=== PATIENT | male | born 1995 | race Two or more races ===

== ENCOUNTER 2016-12-14 15:00 | Emergency (ER) | payer MEDICAID ==
[~2016-12-14] VITALS: Ht 180.3 cm; Wt 77.1 kg
[2016-12-14 15:22] VITALS: BP 125/88
== END 2016-12-14 17:03 | disposition home or self-care (01) ==
LOC: ER 15:00
DX: S01.111D Laceration without foreign body of right eyelid and periocular area, subsequent encounter (principal); X58.XXXD Exposure to other specified factors, subsequent encounter; Y93.89 Activity, other specified; Y92.89 Other specified places as the place of occurrence of the external cause; Y99.8 Other external cause status

== ENCOUNTER 2017-12-16 14:44 | Emergency (ER) | payer MEDICAID ==
[~2017-12-16] VITALS: Ht 177.8 cm; Wt 83.9 kg
[2017-12-16 15:06] VITALS: BP 124/68
[2017-12-16 16:47] LABS: Alanine Aminotransferase 59 U/L (16-61); Albumin 5.3 g/dL (3.4-5.0); Alkaline Phosphatase 79 U/L (45-117); Anion Gap 10 (5-15); Aspartate Aminotransferase 30 U/L (15-37); BUN/Creatinine Ratio 11.6; Bilirubin, Total 0.8 mg/dL (0.2-1.0); Blood Urea Nitrogen 14 mg/dL (7-18); Calcium 9.3 mg/dL (8.5-10.1); Carbon Dioxide 25 mmol/L (21-32); Chloride 103 mmol/L (98-107); GFR African American 96 mL/min; GFR Non-African American 80 mL/min; Glucose 106 mg/dL (74-106); Potassium 3.1 mmol/L (3.5-5.1); Sodium 138 mmol/L (136-145); Total Protein 9.2 g/dL (6.4-8.2)
[2017-12-16 16:52] LABS: Alcohol, Urine < 3.0 mg/dL (0-5); Amphetamine Screen, Urine NEGATIVE (NEGATIVE); Barbiturate Scree,Urine NEGATIVE (NEGATIVE); Benzodiazephine Screen, Urine NEGATIVE (NEGATIVE); Cocaine Screen, Urine NEGATIVE (NEGATIVE); Opiate Scree,Urine NEGATIVE (NEGATIVE); Phencyclidine Screen, Urine NEGATIVE (NEGATIVE)
[2017-12-16 16:57] LABS: Cannabinoid Screen, Urine POSITIVE (NEGATIVE)
[2017-12-16] MEDS ORDERED: POTASSIUM EFFERVESENT TAB 25 MEQ PO ONE (17:00)
[2017-12-16 17:02] LABS: Basophils # (auto) 0 uL; Basophils % (auto) 0.4 % (0.0-2.0); Eosinophils # (auto) 0.1 uL; Hematocrit 44.7 % (41.0-53.0); Hemoglobin 16.1 g/dL (13.5-17.5); Lymphocytes # (auto) 2.1 uL; Lymphocytes % (auto) 23.2 % (10.0-50.0); Mean Corpuscular Hemoglobin 32.9 pg (28.0-32.0); Mean Corpuscular Volume 91.3 fL (80.0-100.0); Monocytes # (auto) 0.8 uL; Neutrophils % (auto) 66.4 % (37.0-80.0); Nucleated Red Blood Cells % 0.4 %; Platelet Count (auto) 293 10^3/uL (140-450); Red Cell Distribution Width 12.4 % (11.8-14.3); White Blood Cell 9.1 10^3/uL (4.4-10.8)
== END 2017-12-16 17:39 | disposition home or self-care (01) ==
LOC: ER 14:48
DX: F41.1 Generalized anxiety disorder (principal); E87.6 Hypokalemia; F14.10 Cocaine abuse, uncomplicated
CPT/HCPCS: 36415; 80053; 80307; 84484; 85025

== ENCOUNTER 2023-11-04 13:38 | Emergency (ER) | payer MEDICAID ==
[~2023-11-04] VITALS: Ht 177.8 cm; Wt 66.1 kg
[2023-11-04 14:18] VITALS: BP 160/76; RESP 16; TEMP 97.6; O2SAT 98
[2023-11-04 14:23] VITALS: PULSE 75
[2023-11-04] MEDS: cefTRIAXone SOD 1,000 MG VL IM ONE (14:32)
[2023-11-04] MEDS ORDERED: CLIN1CAP70 PO (15:06)
[2023-11-04] MEDS ORDERED: IBUP-1456 PO (15:06)
== END 2023-11-04 15:19 | disposition home or self-care (01) ==
LOC: ER 13:45
DX: S62.346A Nondisplaced fracture of base of fifth metacarpal bone, right hand, initial encounter for closed fracture (principal); K04.7 Periapical abscess without sinus; Z88.1 Allergy status to other antibiotic agents; W22.03XA Walked into furniture, initial encounter; Y93.89 Activity, other specified; Y92.89 Other specified places as the place of occurrence of the external cause; Y99.8 Other external cause status
CPT/HCPCS: 29125; 73130; 96372; 99283; J0696

== ENCOUNTER 2024-02-21 16:54 | Emergency (ER) | payer MEDICAID ==
[~2024-02-21] VITALS: Ht 180.3 cm; Wt 72.0 kg
[~2024-02-21 16:54] MED LIST: CLIN1CAP70 PO; IBUP-1456 PO
[2024-02-21 17:30] VITALS: BP 115/78; PULSE 132; RESP 18; O2SAT 97
[2024-02-21] MEDS ORDERED: THIAMINE 100mg/ml INJ (200mg/2ml VIAL) IV ONE (18:45)
[2024-02-21] MEDS ORDERED: SODIUM CHLORIDE 0.9% 1,000 ML IV ONE ×2 (18:45)
== END 2024-02-21 19:49 | disposition left against medical advice (07) ==
LOC: ER 16:54
DX: S01.81XA Laceration without foreign body of other part of head, initial encounter (principal); F10.10 Alcohol abuse, uncomplicated; Z79.899 Other long term (current) drug therapy; W01.0XXA Fall on same level from slipping, tripping and stumbling without subsequent striking against object, initial encounter; Y93.01 Activity, walking, marching and hiking; Y92.89 Other specified places as the place of occurrence of the external cause; Y99.8 Other external cause status

== ENCOUNTER 2024-06-20 15:55 | Emergency (ER) | payer MEDICAID ==
[~2024-06-20] VITALS: Ht 177.8 cm; Wt 66.9 kg
--- NOTE | 2024-06-20 17:17 | DVH ---
CLINICAL INDICATION: R/O FX CRUSHING INJURY TECHNIQUE: 4 radiographic views of the left hand were obtained. Comparison: XY R HAND 3 VIEW XRAY on DOS: 11/04/23 FINDINGS/IMPRESSION: There is no evidence of acute fracture or dislocation. Old healed fracture distal 4th and 5th metacarpal. The visualized joint space is well maintained. The alignment is anatomical. There is no radiopaque foreign body.
--- NOTE | 2024-06-20 17:29 | ED.PDOC ---
Musculoskeletal HPI Comments This patient is a 29-year-old male who arrives the ED today for evaluation of left hand concerns. Patient states that three days ago he had his left hand wedged against a wall due to a piece of wood landing on it. Patient states he had abrasions of the time that he has been cleaning. patient arrives with swelling to the dorsal aspect of the left hand. Patient denies any fever nausea or vomiting. Vital signs were stable on arrival. Chief Complaint: Upper Extremity Time Seen by MD: 17:20 Primary Care Provider: ? Reviewed Notes: Nurses Notes, Medications, Allergies Allergies: Coded Allergies: NO KNOWN ALLERGIES (Unverified , 12/16/17) Home Meds Active Scripts Clindamycin Hcl (Clindamycin Hcl) 300 Mg Cap, 1 CAP PO TID, #30 CAP Prov:FRANDY PRYOR 11/04/23 Ibuprofen (Ibuprofen) 800 Mg Tab, 1 TAB PO TID, #30 TAB Prov:FRANDY PRYOR 11/04/23 Information Source: Patient Mode of Arrival: Ambulatory Location: Left Extremity Location: Hand Timing: Days Prehospital treatment: Pain Meds Severity: Moderate Able to Move Extremity: Yes Bear Weight: Fully Pain: Moderate Hand Dominance: Right Mechanism: Crush Circumstances: Accident Onset of Symptoms: After Trauma Symptoms: Swelling, Pain, Erythema DVT Risk Factors: NONE Associated signs and symptoms: Abrasion, Swelling Past Medical History PAST MEDICAL HISTORY: Denies Surgical History: Denies all surgeries Family History Family History: Reviewed,noncontributory to illness Social History Smoker: Non-Smoker Alcohol: Heavy Drugs: Cocaine, Marijuana Lives In: Home Constitutional: denies: chills, diaphoresis, fatigue, fever, malaise, sweats, weakness, others EENTM: denies: blurred vision, double vision, ear bleeding, ear discharge, ear drainage, ear pain, ear ringing, eye pain, eye redness, hearing loss, mouth pain, mouth swelling, nasal discharge, nose bleeding, nose congestion, nose pain, photophobia, tearing, throat pain, throat swelling, voice changes, others Respiratory: denies: cough, hemoptysis, orthopnea, SOB at rest, shortness of breath, SOB with excertion, stridor, wheezing, others Cardiovascular: denies: chest pain, dizzy spells, diaphoresis, Dyspnea on exertion, edema, irregular heart beat, left arm pain, lightheadedness, palpitations, PND, syncope, others Gastrointestinal: denies: abdomen distended, abdominal pain, blood streaked bowels, constipated, diarrhea, dysphagia, difficulty swallowing, hematemesis, melena, nausea, poor appetite, poor fluid intake, rectal bleeding, rectal pain, vomiting, others Genitourinary: denies: burning, dysuria, flank pain, frequency, hematuria, incontinence, penile discharge, penile sore, pain, testicle pain, testicle swelling, urgency, others Neurological: denies: dizziness, fainting, headache, left sided numbness, left sided weakness, numbness, paresthesia, pre-existing deficit, right sided numbness, right sided weakness, seizure, speech problems, tingling, tremors, weakness, others Musculoskeletal: reports: others (left hand swelling with soft tissue wounds); denies: back pain, gout, joint pain, joint swelling, muscle pain, muscle stiffness, neck pain Integumetry: denies: bruises, change in color, change in hair/nails, dryness, laceration, lesions, lumps, rash, wounds, others Allergic/Immunocompromised: denies: Difficulty Healing, Frequent Infections, Hives, Itching, others Hematologic/Lymphatic: denies: anemia, blood clots, easy bleeding, easy bruising, swollen glands, others Endocrine: denies: excessive hunger, excessive sweating, excessive thirst, excessive urination, flushing, intolerance to cold, intolerance to heat, unexplained weight gain, unexplained weight loss, others Psychiatric: denies: anxiety, bipolar disorder, depression, hopeless, panic disorder, schizophrenia, sleepless, suicidal, others All Other Systems: Reviewed and Negative Physical Exam General Appearance: Mild Distress ([id number] distress due to left hand pain and swelling concerns.), Normal HEENT: Normal ENT Inspection, Pharynx Normal, TMs Normal Neck: Full Range of Motion, Non-Tender, Normal, Normal Inspection Respiratory: Chest Non-Tender, Lungs Clear, No Accessory Muscle Use, No Respiratory Distress, Normal Breath Sounds Cardiovascular: No Edema, No JVD, No Murmur, No Gallop, Normal Peripheral Pulses, Regular Rate/Rhythm Breast Exam: Deferred Gastrointestinal: No Organomegaly, Non Tender, No Pulsatile Mass, Normal Bowel Sounds, Soft Genitalia: Deferred Pelvic: Deferred Rectal: Deferred Extremities: No calf tenderness, Normal capillary refill, Non-tender, No pedal edema, Other (Dorsal aspect of the left hand reveals multiple soft tissue wounds with a edema over the 4th and 5th metacarpal. Mild erythema noted throughout. Moderate reduced range of motion in the 4th and 5th digit. 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 Was a procedure done?: No Differential Diagnosis EXT Differential Diagnosis: Fracture, Sprain, Laceration, Strain X-Ray, Labs, Meds, VS Vital Signs Date Time Temp Pulse Resp B/P (MAP) Pulse Ox O2 Delivery O2 Flow Rate FiO2 06/20/24 16:46 98.1 116 18 140/94 (109) 96 Lab Test 06/20/24 18:16 Range/Units White Blood Count 5.3 4.4-10.8 10^3/uL Red Blood Count 3.98 L 4.5-5.90 10^6/uL Hemoglobin 13.4 L 13.5-17.5 g/dL Hematocrit 38.1 L 41.0-53.0 % Mean Corpuscular Volume 95.6 80.0-100.0 fL Mean Corpuscular Hemoglobin 33.6 H 28.0-32.0 pg Mean Corpuscular Hemoglobin Concent 35.1 32.0-36.0 g/dL Red Cell Distribution Width 12.8 11.8-14.3 % Platelet Count 111 L 140-450 10^3/uL Mean Platelet Volume 8.0 6.9-10.8 fL Neutrophils (%) (Auto) 41.3 37.0-80.0 % Lymphocytes (%) (Auto) 45.2 10.0-50.0 % Monocytes (%) (Auto) 12.0 0.0-12.0 % Eosinophils (%) (Auto) 0.9 0.0-7.0 % Basophils (%) (Auto) 0.6 0.0-2.0 % Neutrophils # (Auto) 2.2 1.6-8.6 10 ^3/uL Lymphocytes # (Auto) 2.4 0.4-5.4 10 ^3/uL Monocytes # (Auto) 0.6 0-1.3 10 ^3/uL Eosinophils # (Auto) 0 0-0.8 10 ^3/uL Basophils # (Auto) 0 0-0.2 10 ^3/uL Nucleated Red Blood Cells 0.1 % Sodium Level 136 136-145 mmol/L Potassium Level 3.3 L 3.5-5.1 mmol/L Chloride Level 98 98-107 mmol/L Carbon Dioxide Level 25 20-31 mmol/L Anion Gap 13 5-15 Blood Urea Nitrogen < 5 L 9-23 mg/dL Creatinine 0.75 0.700-1.30 mg/dL Glomerular Filtration Rate Calc 125 >90 mL/min BUN/Creatinine Ratio 6.7 L 10.0-20.0 Serum Glucose 130 H 74-106 mg/dL Calcium Level 9.7 8.7-10.4 mg/dL [place] [id number] Ph: [phone] DIAGNOSTIC IMAGING Diagnostic Imaging Report : [id number] Signed PATIENT: JAIMEE KWON ACCT: [id number] UNIT: [id number] : 1995 LOC: ER ROOM / BED: / AGE / SEX: 29 / M ADM STATUS: REG ER SERVICE 54 ORDERING PHYSICIAN: ANA BOOKER MD PROCEDURE(s): LHAN - L HAND 3V XRAY REASON: R/O FX CRUSHING INJURY ORDER NUMBER(s): [id number], ACCESSION NUMBER(s): [id number] CLINICAL INDICATION: R/O FX CRUSHING INJURY TECHNIQUE: 4 radiographic views of the left hand were obtained. Comparison: XY R HAND 3 VIEW XRAY on DOS: 11/04/23 FINDINGS/IMPRESSION: There is no evidence of acute fracture or dislocation. Old healed fracture distal 4th and 5th metacarpal. The visualized joint space is well maintained. The alignment is anatomical. There is no radiopaque foreign body. ATED BY: BARB OBANDO Jr., DO DICTATED DATE/TIME: 06/20/24 0975 SIGNED BY: BARB OBANDO Jr., DO SIGNED DATE/TIME: 06/20/24 0925 CC: X-Ray, Labs, Meds, VS Comment All studies performed in the ED were evaluated by me personally. Patient has no acute fractures of the left hand. Patient sustained a crush injury with soft tissue wounds. Lateral concerns for some progressive skin infection. Patient will be sent home with the antibiotics and anti-inflammatory meds to be utilized as directed. Time of 1ST Reevaluation: 19:45 Reevaluation 1ST: Improved Consultation: PCP Patient Education/Counseling: Diagnosis, Treatment Family Education/Counseling: Diagnosis, Treatment, No Family Present Departure 1 Departure Time of Disposition: 19:45 Impression: Primary Impression: Hand contusion Additional Impression: Skin infection Disposition: HOME / SELF CARE / HOMELESS Condition: Stable Additional Instructions: Advised patient utilize antibiotics as directed as well as additional medication as needed. Patient can utilize ice therapy as well. e-Prescriptions Ibuprofen Micronized (Ibuprofen) 800 Mg Tab 800 MG PO Q8HP PRN, #20 TAB Prov: MARYAM DALEY PAC 06/20/24 Cephalexin (KEFLEX CAPSULE) 250 Mg Cp 1 CAP PO QID for 7 Days, #28 CAP Prov: MARYAM DALEY PAC 06/20/24 Critical Care Note Critical Care Time?: No Stability Stability form required: No Heart Score Heart Score: Heart Score Response (Comments) Value History N/A 0 EKG N/A 0 Age N/A 0 Risk Factors N/A 0 Troponin N/A 0 Total 0 I personally scribed for MARYAM DALEY PAC ([email or web address]) on 06/20/24 at 17:29. Electronically submitted by Laverne Saba ([email or web address]). I personally scribed for MARYAM DALEY PAC ([email or web address]) on 06/20/24 at 17:47. Electronically submitted by Laverne Saba ([email or web address]). MARYAM DALEY PAC Jun 20, 2024 17:29
[2024-06-20 18:47] LABS: Basophils # (auto) 0 10 ^3/uL (0-0.2); Basophils % (auto) 0.6 % (0.0-2.0); Eosinophils # (auto) 0 10 ^3/uL (0-0.8); Eosinophils % (auto) 0.9 % (0.0-7.0); Hematocrit 38.1 % (41.0-53.0); Hemoglobin 13.4 g/dL (13.5-17.5); Lymphocytes # (auto) 2.4 10 ^3/uL (0.4-5.4); Lymphocytes % (auto) 45.2 % (10.0-50.0); Mean Corpuscular Hemoglobin 33.6 pg (28.0-32.0); Mean Corpuscular Hgb Conc. 35.1 g/dL (32.0-36.0); Mean Corpuscular Volume 95.6 fL (80.0-100.0); Monocytes # (auto) 0.6 10 ^3/uL (0-1.3); Neutrophils # (auto) 2.2 10 ^3/uL (1.6-8.6); Neutrophils % (auto) 41.3 % (37.0-80.0); Nucleated Red Blood Cells % 0.1 %; Platelet Count (auto) 111 10^3/uL (140-450); Red Blood Cells 3.98 10^6/uL (4.5-5.90); Red Cell Distribution Width 12.8 % (11.8-14.3); White Blood Cell 5.3 10^3/uL (4.4-10.8)
[2024-06-20 18:57] LABS: Chloride 98 mmol/L (98-107); Sodium 136 mmol/L (136-145)
[2024-06-20 18:58] LABS: Anion Gap 13 (5-15); Calcium 9.7 mg/dL (8.7-10.4); Carbon Dioxide 25 mmol/L (20-31)
[2024-06-20 19:05] LABS: BUN/Creatinine Ratio 6.7 (10.0-20.0); Blood Urea Nitrogen < 5 mg/dL (9-23); Glucose 130 mg/dL (74-106); Potassium 3.3 mmol/L (3.5-5.1)
[2024-06-20] MEDS ORDERED: CEPH250C PO (19:46)
[2024-06-20] MEDS ORDERED: IBUP-1455 PO (19:46)
[2024-06-20 20:59] VITALS: BP 130/94; PULSE 98; RESP 18; TEMP 97.9; O2SAT 97
== END 2024-06-20 21:01 | disposition home or self-care (01) ==
LOC: ER 15:55
DX: S60.222A Contusion of left hand, initial encounter (principal); L08.9 Local infection of the skin and subcutaneous tissue, unspecified; W23.0XXA Caught, crushed, jammed, or pinched between moving objects, initial encounter; Y93.89 Activity, other specified; Y92.89 Other specified places as the place of occurrence of the external cause; Y99.8 Other external cause status
CPT/HCPCS: 36415; 73130; 80048; 85025

== ENCOUNTER 2024-07-15 12:48 | Inpatient (IN) | payer MEDICAID ==
[~2024-07-15] VITALS: Ht 152.4 cm; Wt 70.0 kg
[~2024-07-15 12:48] MED LIST changes: +CEPH250C PO; +IBUP-1455 PO
--- NOTE | 2024-07-15 13:08 | ED.PDOC ---
History of Present Illness HPI Comments 29M [place] from [facility] w/ a c/c of Sz. EMS report the pt having a 1 minute lasting SZ, twice, w/ a 1 minute interval in between. Pt states that he has had a Sz in the past 1 month ago, but did not ever go see a physician for it. Pt notes that he does not have any Sz medications. Social Hx of tobacco use, heavy alcohol use, and marijuana use. Denies chills, fever, N/V/D, SOB, CP or no other associated symptom's, modifiers, recent injuries or sick contacts at this time. Chief Complaint: Seizure Time Seen by MD: 12:55 Primary Care Provider: ? Reviewed Notes: Nurses Notes, Lead Nurse Notes, Medications, Allergies Allergies: Coded Allergies: NO KNOWN ALLERGIES (Unverified , 12/16/17) Home Meds Active Scripts Ibuprofen Micronized (Ibuprofen) 800 Mg Tab, 800 MG PO Q8HP PRN, #20 TAB Prov:MARYAM DALEY PAC 06/20/24 Cephalexin (KEFLEX CAPSULE) 250 Mg Cp, 1 CAP PO QID for 7 Days, #28 CAP Prov:MARYAM DALEY PAC 25 Clindamycin Hcl (Clindamycin Hcl) 300 Mg Cap, 1 CAP PO TID, #30 CAP Prov:FRANDY PRYOR 11/04/23 Ibuprofen (Ibuprofen) 800 Mg Tab, 1 TAB PO TID, #30 TAB Prov:FRANDY PRYOR 11/04/23 Information Source: Patient, Emergency Med Personnel Mode of Arrival: EMS Severity: Moderate Timing: Minutes Duration: Since onset, Minutes Prehospital treatment: None Past Medical History PAST MEDICAL HISTORY: Seizures Surgical History: Denies all surgeries Family History Family History: Reviewed,noncontributory to illness, Unknown Social History Smoker: Cigarettes Alcohol: Heavy Drugs: Cocaine (UNKNOWN), Marijuana Lives In: Home Constitutional: denies: chills, diaphoresis, fatigue, fever, malaise, sweats, weakness, others EENTM: denies: blurred vision, double vision, ear bleeding, ear discharge, ear drainage, ear pain, ear ringing, eye pain, eye redness, hearing loss, mouth pain, mouth swelling, nasal discharge, nose bleeding, nose congestion, nose pain, photophobia, tearing, throat pain, throat swelling, voice changes, others Respiratory: denies: cough, hemoptysis, orthopnea, SOB at rest, shortness of breath, SOB with excertion, stridor, wheezing, others Cardiovascular: denies: chest pain, dizzy spells, diaphoresis, Dyspnea on exertion, edema, irregular heart beat, left arm pain, lightheadedness, palpitations, PND, syncope, others Gastrointestinal: denies: abdomen distended, abdominal pain, blood streaked bowels, constipated, diarrhea, dysphagia, difficulty swallowing, hematemesis, melena, nausea, poor appetite, poor fluid intake, rectal bleeding, rectal pain, vomiting, others Genitourinary: denies: burning, dysuria, flank pain, frequency, hematuria, incontinence, penile discharge, penile sore, pain, testicle pain, testicle swelling, urgency, others Neurological: reports: seizure; denies: dizziness, fainting, headache, left sided numbness, left sided weakness, numbness, paresthesia, pre-existing deficit, right sided numbness, right sided weakness, speech problems, tingling, tremors, weakness, others Musculoskeletal: denies: back pain, gout, joint pain, joint swelling, muscle pain, muscle stiffness, neck pain, others Integumetry: denies: bruises, change in color, change in hair/nails, dryness, laceration, lesions, lumps, rash, wounds, others Allergic/Immunocompromised: denies: Difficulty Healing, Frequent Infections, Hives, Itching, others Hematologic/Lymphatic: denies: anemia, blood clots, easy bleeding, easy bruising, swollen glands, others Endocrine: denies: excessive hunger, excessive sweating, excessive thirst, excessive urination, flushing, intolerance to cold, intolerance to heat, unexplained weight gain, unexplained weight loss, others Psychiatric: denies: anxiety, bipolar disorder, depression, hopeless, panic disorder, schizophrenia, sleepless, suicidal, others All Other Systems: Reviewed and Negative Physical Exam General Appearance: Moderate Distress, Normal HEENT: Normal ENT Inspection, Pharynx Normal, TMs Normal Neck: Full Range of Motion, Non-Tender, Normal, Normal Inspection Respiratory: Chest Non-Tender, Lungs Clear, No Accessory Muscle Use, No Respiratory Distress, Normal Breath Sounds Cardiovascular: No Edema, No JVD, No Murmur, No Gallop, Normal Peripheral Pulses, Regular Rate/Rhythm Breast Exam: Deferred Gastrointestinal: No Organomegaly, Non Tender, No Pulsatile Mass, Normal Bowel Sounds, Soft Genitalia: Deferred Pelvic: Deferred Rectal: Deferred Extremities: No calf tenderness, Normal capillary refill, Normal inspection, Normal range of motion, Non-tender, No pedal edema Musculoskeletal : Apperance: Normal Neurologic: Disoriented, No Motor Deficits, Normal Mood, No Sensory Deficits Cerebellar Function: NOT DONE Reflexes: NOT DONE Skin: Dry, Normal Color, Warm Peripheral Pulses: 3+ Radial (R), 3+ Radial (L) Lymphatic: No Adenopathy Was a procedure done? Was a procedure done?: No Differential Dx Considerations may include: Seizure Electrolyte imbalance X-Ray, Labs, Meds, VS Vital Signs Date Time Temp Pulse Resp B/P (MAP) Pulse Ox O2 Delivery O2 Flow Rate FiO2 07/15/24 13:00 98.0 116 16 147/89 (108) 96 98.0 Lab Test 07/15/24 13:07 Range/Units White Blood Count Pending Red Blood Count Pending Hemoglobin Pending Hematocrit Pending Mean Corpuscular Volume Pending Mean Corpuscular Hemoglobin Pending Mean Corpuscular Hemoglobin Concent Pending Red Cell Distribution Width Pending Platelet Count Pending Mean Platelet Volume Pending Neutrophils (%) (Auto) Pending Lymphocytes (%) (Auto) Pending Monocytes (%) (Auto) Pending Basophils (%) (Auto) Pending Neutrophils # (Auto) Pending Lymphocytes # (Auto) Pending Monocytes # (Auto) Pending Sodium Level Pending Potassium Level Pending Chloride Level Pending Carbon Dioxide Level Pending Anion Gap Pending Blood Urea Nitrogen Pending Creatinine Pending Glomerular Filtration Rate Calc Pending BUN/Creatinine Ratio Pending Serum Glucose Pending Calcium Level Pending Plasma/Serum Blood Alcohol Pending Patient is slightly disoriented. Postictal. History of alcohol abuse. Has not been taking his medication. Possible alcohol withdrawal. Blood pressure slightly elevated. Patient denies use of any medication. Establish intravenous access. Was given fluids. Was given thiamine. Was given Ativan. Waiting for family. Continue cardiac monitoring. Time of 1ST Reevaluation: 13:25 Reevaluation 1ST: Unchanged Patient Education/Counseling: Diagnosis, Treatment, Prognosis Family Education/Counseling: No Family Present Departure 1 Departure Time of Disposition: 13:28 Impression: Primary Impression: Metabolic encephalopathy Additional Impressions: Seizure Alcohol withdrawal Qualified Codes: F10.939 - Alcohol use, unspecified with withdrawal, unspecified Disposition: ADMITTED INPATIENT Admit to: Med Surg Condition: Guarded Critical Care Note Critical Care Time?: Yes (45 min-critical care time only) Critical care comment: Possible alcohol withdrawal continue monitor Stability Stability form required: No Heart Score Heart Score: Heart Score Response (Comments) Value History N/A 0 EKG N/A 0 Age N/A 0 Risk Factors N/A 0 Troponin N/A 0 Total 0 I personally scribed for ANA BOOKER MD ([email or web address]) on 07/15/24 at 13:08. Electronically submitted by Rip Ramos ([email or web address]). ANA BOOKER MD Jul 15, 2024 13:08
[2024-07-15 13:28] LABS: Basophils # (auto) 0.1 10 ^3/uL (0-0.2); Basophils % (auto) 1.3 % (0.0-2.0); Eosinophils # (auto) 0.1 10 ^3/uL (0-0.8); Eosinophils % (auto) 1.1 % (0.0-7.0); Hematocrit 39.8 % (41.0-53.0); Hemoglobin 13.7 g/dL (13.5-17.5); Lymphocytes # (auto) 1.1 10 ^3/uL (0.4-5.4); Lymphocytes % (auto) 22.7 % (10.0-50.0); Mean Corpuscular Hemoglobin 34.3 pg (28.0-32.0); Mean Corpuscular Hgb Conc. 34.4 g/dL (32.0-36.0); Mean Corpuscular Volume 99.7 fL (80.0-100.0); Monocytes # (auto) 0.6 10 ^3/uL (0-1.3); Monocytes % (auto) 11.6 % (0.0-12.0); Neutrophils # (auto) 3.1 10 ^3/uL (1.6-8.6); Neutrophils % (auto) 63.3 % (37.0-80.0); Nucleated Red Blood Cells % 0.2 %; Platelet Count (auto) 128 10^3/uL (140-450); Red Blood Cells 3.99 10^6/uL (4.5-5.90); Red Cell Distribution Width 13.4 % (11.8-14.3); White Blood Cell 4.9 10^3/uL (4.4-10.8)
[2024-07-15 13:35] LABS: Chloride 100 mmol/L (98-107); Potassium 3.9 mmol/L (3.5-5.1)
[2024-07-15 13:36] LABS: Anion Gap 15 (5-15); Carbon Dioxide 21 mmol/L (20-31)
[2024-07-15 13:38] LABS: Calcium 10.6 mg/dL (8.7-10.4)
[2024-07-15 13:48] LABS: BUN/Creatinine Ratio 5.8 (10.0-20.0); Blood Alcohol < 3.0 mg/dL (<10); Blood Urea Nitrogen < 5 mg/dL (9-23); Glucose 195 mg/dL (74-106); Sodium 136 mmol/L (136-145)
[2024-07-15] MEDS: SODIUM CHLORIDE 0.9% 1,000 ML IV ONE (15:25)
[2024-07-15] MEDS: LORazepam 2MG/ML-1ML VIAL IV ONE (15:25)
[2024-07-15] MEDS: THIAMINE 100mg/ml INJ (200mg/2ml VIAL) IV ONE (15:26)
[2024-07-15] MEDS ORDERED: HYDROcodone-ACET 5/325MG TAB PO PRN (20:45)
[2024-07-15] MEDS ORDERED: ONDANSETRON HCL 4 MG/2 ML VIAL IV PRN (20:45)
[2024-07-15] MEDS ORDERED: ACETAMINOPHEN 325 MG TAB PO PRN (20:45)
[2024-07-15] MEDS ORDERED: DOCUSATE SOD 100 MG CAP PO PRN (20:45)
--- NOTE | 2024-07-15 20:45 | DVHHP2 ---
Admitting Diagnosis: New onset seizure History of Present Illness 29M [facility]IB[facility] from [facility] w/ a c/c of Sz. EMS report the pt having a 1 minute lasting SZ, twice, w/ a 1 minute interval in between. Pt states that he has had a Sz in the past 1 month ago, but did not ever go see a physician for it. Pt notes that he does not have any Sz medications. Social Hx of tobacco use, heavy alcohol use, and marijuana use. Denies chills, fever, N/V/D, SOB, CP or no other associated symptom's, modifiers, recent injuries or sick contacts at this time. PAST MEDICAL HISTORY: Seizures Surgical History: Denies all surgeries Family History: Reviewed,noncontributory to illness, Unknown Social History Smoker: Cigarettes Alcohol: Heavy Drugs: Cocaine (UNKNOWN), Marijuana Lives In: Home Allergies: Coded Allergies: NO KNOWN ALLERGIES (Unverified , 12/16/17) Home Meds Active Scripts Ibuprofen Micronized (Ibuprofen) 800 Mg Tab, 800 MG PO Q8HP PRN, #20 TAB Prov:MARYAM DALEY PAC 06/20/24 Cephalexin (KEFLEX CAPSULE) 250 Mg Cp, 1 CAP PO QID for 7 Days, #28 CAP Prov:MARYAM DALEY PAC 06/20/24 Clindamycin Hcl (Clindamycin Hcl) 300 Mg Cap, 1 CAP PO TID, #30 CAP Prov:FRANDY PRYOR 11/04/23 Ibuprofen (Ibuprofen) 800 Mg Tab, 1 TAB PO TID, #30 TAB Prov:FRANDY PRYOR 11/04/23 Vital Signs Vital Signs Date Time Temp Pulse Resp B/P (MAP) Pulse Ox O2 Delivery O2 Flow Rate FiO2 07/15/24 13:00 98.0 116 16 147/89 (108) 96 98.0 Physical Exam Generally-89 years old male, well nourished well developed. No apparent distress HEENT-atraumatic normocephalic Heart-sinus tachycardic Lungs clear to auscultate Abdomen soft nontender nondistended Musculoskeletal Neuro-AO x3, no focal deficit Results Labs Test 07/15/24 13:07 Range/Units White Blood Count 4.9 4.4-10.8 10^3/uL Red Blood Count 3.99 L 4.5-5.90 10^6/uL Hemoglobin 13.7 13.5-17.5 g/dL Hematocrit 39.8 L 41.0-53.0 % Mean Corpuscular Volume 99.7 80.0-100.0 fL Mean Corpuscular Hemoglobin 34.3 H 28.0-32.0 pg Mean Corpuscular Hemoglobin Concent 34.4 32.0-36.0 g/dL Red Cell Distribution Width 13.4 11.8-14.3 % Platelet Count 128 L 140-450 10^3/uL Mean Platelet Volume 7.8 6.9-10.8 fL Neutrophils (%) (Auto) 63.3 37.0-80.0 % Lymphocytes (%) (Auto) 22.7 10.0-50.0 % Monocytes (%) (Auto) 11.6 0.0-12.0 % Eosinophils (%) (Auto) 1.1 0.0-7.0 % Basophils (%) (Auto) 1.3 0.0-2.0 % Neutrophils # (Auto) 3.1 1.6-8.6 10 ^3/uL Lymphocytes # (Auto) 1.1 0.4-5.4 10 ^3/uL Monocytes # (Auto) 0.6 0-1.3 10 ^3/uL Eosinophils # (Auto) 0.1 0-0.8 10 ^3/uL Basophils # (Auto) 0.1 0-0.2 10 ^3/uL Nucleated Red Blood Cells 0.2 % Sodium Level 136 136-145 mmol/L Potassium Level 3.9 3.5-5.1 mmol/L Chloride Level 100 98-107 mmol/L Carbon Dioxide Level 21 20-31 mmol/L Anion Gap 15 5-15 Blood Urea Nitrogen < 5 L 9-23 mg/dL Creatinine 0.86 0.700-1.30 mg/dL Glomerular Filtration Rate Calc 120 >90 mL/min BUN/Creatinine Ratio 5.8 L 10.0-20.0 Serum Glucose 195 H 74-106 mg/dL Calcium Level 10.6 H 8.7-10.4 mg/dL Plasma/Serum Blood Alcohol < 3.0 <10 mg/dL Primary Diagnosis Seizure Recent alcohol use Plan He drinks six beer yesterday. Patient denied drug use check urine drug Unclear if patient had an alcohol withdrawal seizure. Shows sinus Librium tremens Check brain MRI to rule out abnormalities Start Keppra 500 mg b.i.d. neurology consult Neuro check per floor protocol IV fluids Ativan p.r.n. for breakthrough seizure Full code Lovenox for DVT prophylaxis No GI prophylaxis needed Regular diet Plan discussed with: Patient Problems List: (1) Seizure (2) Alcohol abuse Status: Acute Date of Service: Jul 15, 2024 Billing Provider: TL TYLER MD Common Visit Codes: [id number] INP/OBS CARE (MOD) TL TYLER MD Jul 15, 2024 20:45
[2024-07-15 23:05] VITALS: PULSE 94; RESP 20; O2SAT 98
[2024-07-15] MEDS: levETIRAcetam 500 mg/100ml 100 ML IV SCH (23:12)
[2024-07-15] MEDS: SODIUM CHLOR 0.9% PF (SALINE LOCK) 10ML VIAL/SYR IV SCH (23:13)
[2024-07-15] MEDS: LACTATED RINGER'S 1,000 ML IV ONE (23:13)
[2024-07-16 01:38] LABS: Cocaine Screen, Urine Neg (NEGATIVE)
[2024-07-16 01:39] LABS: Cannabinoid Screen, Urine Neg (NEGATIVE)
[2024-07-16 01:41] LABS: Amphetamine Screen, Urine Neg (NEGATIVE); Barbiturate Scree,Urine Neg (NEGATIVE); Benzodiazephine Screen, Urine Neg (NEGATIVE); Opiate Scree,Urine Neg (NEGATIVE); Phencyclidine Screen, Urine Neg (NEGATIVE)
[2024-07-16 05:49] LABS: Basophils # (auto) 0 10 ^3/uL (0-0.2); Basophils % (auto) 0.7 % (0.0-2.0); Eosinophils # (auto) 0.1 10 ^3/uL (0-0.8); Hemoglobin 12.2 g/dL (13.5-17.5); Lymphocytes # (auto) 1.2 10 ^3/uL (0.4-5.4); Monocytes # (auto) 0.8 10 ^3/uL (0-1.3)
[2024-07-16 05:51] LABS: Eosinophils % (auto) 1.7 % (0.0-7.0); Hematocrit 34.8 % (41.0-53.0); Lymphocytes % (auto) 18.3 % (10.0-50.0); Mean Corpuscular Hemoglobin 34.7 pg (28.0-32.0); Mean Corpuscular Hgb Conc. 35.1 g/dL (32.0-36.0); Mean Corpuscular Volume 98.8 fL (80.0-100.0); Monocytes % (auto) 13.2 % (0.0-12.0); Neutrophils # (auto) 4.2 10 ^3/uL (1.6-8.6); Neutrophils % (auto) 66.1 % (37.0-80.0); Nucleated Red Blood Cells % 0.1 %; Platelet Count (auto) 110 10^3/uL (140-450); Red Blood Cells 3.52 10^6/uL (4.5-5.90); Red Cell Distribution Width 13.2 % (11.8-14.3); White Blood Cell 6.4 10^3/uL (4.4-10.8)
[2024-07-16 06:03] VITALS: PULSE 84; RESP 20; O2SAT 99
[2024-07-16 06:05] LABS: Alkaline Phosphatase 93 U/L (46-116); Anion Gap 10 (5-15); BUN/Creatinine Ratio 7.1 (10.0-20.0); Calcium 10.2 mg/dL (8.7-10.4); Carbon Dioxide 27 mmol/L (20-31); Chloride 100 mmol/L (98-107); Glucose 101 mg/dL (74-106); Sodium 137 mmol/L (136-145); Total Protein 8.1 g/dL (5.7-8.2)
[2024-07-16 06:07] LABS: Alanine Aminotransferase 141 U/L (7-40); Albumin 5.2 g/dL (3.2-4.8); Aspartate Aminotransferase 185 U/L (13-40); Bilirubin, Total 1.6 mg/dL (0.2-1.0); Blood Urea Nitrogen 6 mg/dL (9-23); Potassium 3.5 mmol/L (3.5-5.1)
[2024-07-16 08:00] VITALS: TEMP 98.2
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
--- NOTE | 2024-07-16 09:06 | DVH ---
PROCEDURE: MRI OF THE BRAIN WITHOUT CONTRAST. CLINICAL INDICATION: 29 years old, Male; seizure. TECHNIQUE: Multiplanar, multi sequence MRI of the brain was performed without intravenous contrast. COMPARISON: None FINDINGS: The signal abnormality of the brain parenchyma is within normal limits. There are no areas of restric cheri diffusion to suggest acute infarct. No evidence of space occupying mass lesion, extra-axial colle ctions or hemorrhage is noted. The ventricles, sulci and basal cisterns are intact. There is no signa l abnormality in the posterior fossa. The paranasal sinuses and mastoid air cells are well pneumatized. The orbits and nasopharynx are inta ct. The osseous structures are intact. The vessels of the skull base demonstrate signal void consistent with patency. IMPRESSION: 1. No acute intracranial abnormality.
[2024-07-16 10:00] VITALS: BP 135/82; PULSE 85; RESP 21; O2SAT 99
[2024-07-16] MEDS: ENOXAPARIN SOD 40 MG/0.4 ML SYRINGE SC SCH (10:31)
[2024-07-16] MEDS: THIAMINE HCL 100 MG TAB PO SCH (10:31)
[2024-07-16] MEDS: FOLIC ACID 1 MG TAB PO SCH (10:31)
--- NOTE | 2024-07-16 12:47 | DVHPNRES ---
Progress Note Objective vital signs Vital Sign Date Time Temp Pulse Resp B/P (MAP) Pulse Ox O2 Delivery O2 Flow Rate FiO2 07/16/24 10:00 85 21 135/82 (99) 99 07/16/24 08:00 Room Air* 0 21 07/16/24 08:00 98.2 98.2 Total Intake and Output 07/15/24 07/15/24 07/16/24 15:00 23:00 07:00 Intake Total 1000 ml Balance 1000 ml medications Current Medications Medications Dose Ordered Sig/Mani Route Start Time Stop Time Status Last Admin Dose Admin Thiamine HCl 100 mg DAILY PO 07/16/24 10:00 07/16/24 10:31 100 MG Folic Acid 1 mg DAILY PO 07/16/24 10:00 07/16/24 10:31 1 MG Sodium Chloride 10 ml Q8HR IV 07/15/24 22:00 07/16/24 06:08 10 ML Docusate Sodium 100 mg BIDPRN PRN PO 07/15/24 20:45 Acetaminophen 650 mg Q6HP PRN PO 07/15/24 20:45 Acetaminophen/ Hydrocodone Bitart 1 tab Q4HP PRN PO 07/15/24 20:45 Ondansetron HCl 4 mg Q4HP PRN IV 07/15/24 20:45 Enoxaparin Sodium 40 mg DAILY SC 07/16/24 10:00 07/16/24 10:31 40 MG laboratory and microbiology Laboratory Tests 07/16/24 05:04 Test 07/16/24 05:04 Range/Units Serum Glucose 101 74-106 mg/dL KHARI DAILY RESIDENT Jul 16, 2024 12:47
--- NOTE | 2024-07-16 12:57 | DVHDSRES ---
Discharge Summary Date of Admission Resident Creating Document: KHARI DAILY RESIDENT Jul 15, 2024 at 20:33 Date of Discharge: Jul 16, 2024 Admitting Diagnosis seizures Labs/Diagnostic Data: Laboratory Results Test 07/16/24 05:04 07/16/24 00:30 07/15/24 13:07 White Blood Count 6.4 10^3/uL (4.4-10.8) Red Blood Count 3.52 10^6/uL (4.5-5.90) Hemoglobin 12.2 g/dL (13.5-17.5) Hematocrit 34.8 % (41.0-53.0) Mean Corpuscular Volume 98.8 fL (80.0-100.0) Mean Corpuscular Hemoglobin 34.7 pg (28.0-32.0) Mean Corpuscular Hemoglobin Concent 35.1 g/dL (32.0-36.0) Red Cell Distribution Width 13.2 % (11.8-14.3) Platelet Count 110 10^3/uL (140-450) Mean Platelet Volume 8.1 fL (6.9-10.8) Neutrophils (%) (Auto) 66.1 % (37.0-80.0) Lymphocytes (%) (Auto) 18.3 % (10.0-50.0) Monocytes (%) (Auto) 13.2 % (0.0-12.0) Eosinophils (%) (Auto) 1.7 % (0.0-7.0) Basophils (%) (Auto) 0.7 % (0.0-2.0) Neutrophils # (Auto) 4.2 10 ^3/uL (1.6-8.6) Lymphocytes # (Auto) 1.2 10 ^3/uL (0.4-5.4) Monocytes # (Auto) 0.8 10 ^3/uL (0-1.3) Eosinophils # (Auto) 0.1 10 ^3/uL (0-0.8) Basophils # (Auto) 0 10 ^3/uL (0-0.2) Nucleated Red Blood Cells 0.1 % Sodium Level 137 mmol/L (136-145) Potassium Level 3.5 mmol/L (3.5-5.1) Chloride Level 100 mmol/L (98-107) Carbon Dioxide Level 27 mmol/L (20-31) Anion Gap 10 (5-15) Blood Urea Nitrogen 6 mg/dL (9-23) Creatinine 0.84 mg/dL (0.700-1.30) Glomerular Filtration Rate Calc 121 mL/min (>90) BUN/Creatinine Ratio 7.1 (10.0-20.0) Serum Glucose 101 mg/dL (74-106) Calcium Level 10.2 mg/dL (8.7-10.4) Total Bilirubin 1.6 mg/dL (0.2-1.0) Aspartate Amino Transferase (AST) 185 U/L (13-40) Alanine Aminotransferase (ALT) 141 U/L (7-40) Alkaline Phosphatase 93 U/L (46-116) Total Protein 8.1 g/dL (5.7-8.2) Albumin 5.2 g/dL (3.2-4.8) Urine Opiates Screen Neg (NEGATIVE) Urine Fentanyl Screen Neg (NEGATIVE) Urine Barbiturates Screen Neg (NEGATIVE) Urine Phencyclidine Screen Neg (NEGATIVE) Urine Amphetamines Screen Neg (NEGATIVE) Urine Benzodiazepines Screen Neg (NEGATIVE) Urine Cocaine Screen Neg (NEGATIVE) Urine Cannabinoids Screen Neg (NEGATIVE) Plasma/Serum Blood Alcohol < 3.0 mg/dL (<10) Other Laboratory Tests 07/16/24 05:04 Brief Hx & Hospital Course: A 29-year-old with a history of chronic alcohol use (up to six packs daily) and previous alcohol withdrawal seizures presented with generalized seizure activity. He reported waking up disoriented with EMS present and had similar episodes in 2023 but did not seek medical attention at that time. He had his last alcohol intake on 07/14/2024, suspecting that withdrawal triggered his seizures. Workup, including urine drug screen, CBC, BMP, and MRI brain, was unremarkable. Labs showed elevated ALT (141 U/L) suggestive of alcoholic hepatopathy. The patient was diagnosed with recurrent generalized seizures, likely secondary to alcohol withdrawal, and was placed on supportive treatment, telemetry, EEG monitoring, thiamine, folic acid, and DVT prophylaxis, with Ativan available for seizure breakthrough. Preventive seizure therapy was deemed unnecessary at this time. Despite medical recommendations, the patient decided to leave against medical advice (AMA), stating that he had committed to quitting alcohol completely. The risks of recurrent seizures, potential complications of withdrawal, and the importance of follow-up care were thoroughly discussed, but he remained adamant about his decision. He was advised to seek immediate medical attention if seizures recurred and was encouraged to follow up with a primary care provider and neurology for further evaluation. Generally-89 years old male, well nourished well developed. No apparent distress HEENT-atraumatic normocephalic Heart-sinus tachycardic Lungs clear to auscultate Abdomen soft nontender nondistended Musculoskeletal Neuro-AO x3, no focal deficit Case discussed with Dr Graham Consults/Reason for consult neurology due to seizures Operations or Procedures ORDERING PHYSICIAN: TL TYLER MD PROCEDURE(s): MBHL - BRAIN HEAD WO CONTRAST REASON: seizure ORDER NUMBER(s): [id number], ACCESSION NUMBER(s): [id number] PROCEDURE: MRI OF THE BRAIN WITHOUT CONTRAST. CLINICAL INDICATION: 29 years old, Male; seizure. TECHNIQUE: Multiplanar, multi sequence MRI of the brain was performed without intravenous contrast. COMPARISON: None FINDINGS: The signal abnormality of the brain parenchyma is within normal limits. There are no areas of restricted diffusion to suggest acute infarct. No evidence of space occupying mass lesion, extra-axial collections or hemorrhage is noted. The ventricles, sulci and basal cisterns are intact. There is no signal abnormality in the posterior fossa. The paranasal sinuses and mastoid air cells are well pneumatized. The orbits and nasopharynx are intact. The osseous structures are intact. The vessels of the skull base demonstrate signal void consistent with patency. IMPRESSION: 1. No acute intracranial abnormality Condition at Discharge: Stable Final Diagnosis/Problems List #Recurrent grand mal seizure #Likely alcohol withdrawal seizure #Rule out epileptic seizure, less likely #Alcoholism #Alcoholic hepatopathy #Transaminitis Discharge Disposition: AMA Discharge Statement: "Patient was advised to return to the ER or call 911 if any headaches, dizziness, shortness of breath, chest pain, abdominal pain, bleeding, fevers, or worsening of medical condition. Patient was counseled about treatment plan, medications, possible side effects, patientverbalized understanding. All questions were answered to the best of my ability. This discharge took greater then 30 minutes in planning, reviewing documentation, counseling the patient, and discussing with other team members." ASSESSMENT ASSESSMENT Assessment Date of Service: Jul 16, 2024 Billing Provider: JUAN M GRAHAM DO Common Visit Codes: 73669-NPL/OBS DISCH DAY >30min KHARI DAILY RESIDENT Jul 16, 2024 12:57 JUAN M GRAHAM DO Jul 18, 2024 12:33
== END 2024-07-16 12:47 | disposition left against medical advice (07) | DRG 53 ==
LOC: EDBD 12:48 → EDUNIT# 12:48 → ER 12:48 → OVERFLOW 20:33
PROVIDERS: ADMIT Internal Medicine; ATTEND Emergency Medicine
DX: G40.409 Other generalized epilepsy and epileptic syndromes, not intractable, without status epilepticus (principal); K70.9 Alcoholic liver disease, unspecified; F10.139 Alcohol abuse with withdrawal, unspecified; F17.210 Nicotine dependence, cigarettes, uncomplicated; Y90.9 Presence of alcohol in blood, level not specified; F14.10 Cocaine abuse, uncomplicated; R74.01 Elevation of levels of liver transaminase levels; F12.10 Cannabis abuse, uncomplicated; R41.3 Other amnesia; Z53.29 Procedure and treatment not carried out because of patient's decision for other reasons; G25.0 Essential tremor; Z79.1 Long term (current) use of non-steroidal anti-inflammatories (NSAID); Z79.2 Long term (current) use of antibiotics; Z79.899 Other long term (current) drug therapy; Z82.49 Family history of ischemic heart disease and other diseases of the circulatory system
CPT/HCPCS: 36415; 70551; 80048; 80053; 80307; 80320; 85025; 96365; 96375; 99291; G0378

== ENCOUNTER 2024-11-20 17:40 | Emergency (ER) | payer MEDICAID ==
[~2024-11-20] VITALS: Ht 177.8 cm; Wt 67.9 kg
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
[2024-11-20 21:30] VITALS: BP 130/74; PULSE 84; RESP 19; TEMP 98; O2SAT 95
[2024-11-20] MEDS: HYDROcodone-ACET 5/325MG TAB PO ONE (21:37)
== END 2024-11-20 21:50 | disposition home or self-care (01) ==
LOC: ER 17:40
DX: S56.911A Strain of unspecified muscles, fascia and tendons at forearm level, right arm, initial encounter (principal); F17.210 Nicotine dependence, cigarettes, uncomplicated; W22.8XXA Striking against or struck by other objects, initial encounter; Y93.89 Activity, other specified; Y92.89 Other specified places as the place of occurrence of the external cause; Y99.8 Other external cause status
CPT/HCPCS: 73080